=== PATIENT | female | born 1960 | race Caucasian/White ===

== ENCOUNTER 2017-09-23 06:02 | Day surgery (SDC) | payer BC, OTHER ==
[2017-09-19 14:19] VITALS: BMI 34.5
[2017-09-23] MEDS ORDERED: LIDOCAINE 1%/EPI 1:100000 (20 ML MULTI DOSE VIAL) ONE (07:24)
[2017-09-23] MEDS ORDERED: BUPIVACAINE HCL/PF 2.5 MG/ML - 30 ML VIAL IJ ONE (07:24)
[2017-09-23] MEDS ORDERED: SUCCINYLCHOLINE CHLORIDE 200 MG/10 ML VIAL ONE (07:43)
[2017-09-23] MEDS ORDERED: MIDAZOLAM HCL 2 MG/2 ML SINGLE DOSE VIAL ONE (07:43)
[2017-09-23] MEDS ORDERED: PROPOFOL 20 ML ONE (07:43)
[2017-09-23] MEDS ORDERED: ceFAZolin SODIUM 1 GM VIAL ONE (08:11)
[2017-09-23] MEDS ORDERED: DEXAMETHASONE SOD PHOSPHATE 4 MG/1 ML VIAL ONE (08:22)
[2017-09-23] MEDS ORDERED: ONDANSETRON 4 MG/2 ML VIAL ONE (08:22)
[2017-09-23] MEDS ORDERED: LABETALOL HCL 5 MG/1 ML (100MG/20 ML VIAL) ONE (09:15)
[2017-09-23] MEDS ORDERED: NITROGLYCERIN 2% OINTMENT - 1GM PACKET TD ONE (10:20)
[2017-09-23] MEDS ORDERED: ONDANSETRON 4 MG/2 ML VIAL IVPUSH PRN (11:32)
[2017-09-23] MEDS ORDERED: ACETAMINOPHEN 325 MG TABLET (FP) PO PRN (11:32)
[2017-09-23] MEDS ORDERED: oxyCODONE HCL 5 MG TABLET PO PRN ×3 (11:32→11:36)
[2017-09-23] MEDS ORDERED: ONDANSETRON 4 MG/2 ML VIAL IVPB PRN (11:36)
--- NOTE | 2017-09-23 11:40 | OP ---
Operative Note - Note: Operative Date: 09/23/17 Pre-Operative Diagnosis: deformity of bilateral breast reconstructions Operation: revision of bilateral breast reconstructions Post-Operative Diagnosis: Same as Pre-op Surgeon: Jeffrey Vazquez Anesthesia: General
[2017-09-23] MEDS ORDERED: LACTATED RINGERS SOLUTION 1,000 ML IV SCH ×2 (11:45)
[2017-09-23 12:44] VITALS: TEMP 98.4
--- NOTE | 2017-09-23 13:28 | OP ---
DATE OF OPERATION: 09/23/2017 PROCEDURE: Bilateral revision of reconstructed breasts. 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 POSTOPERATIVE DIAGNOSIS: Deformity of bilateral reconstructed breasts status post mastectomy with bilateral implant breast reconstructions. ATTENDING SURGEON: Jeffrey Vazquez MD DESCRIPTION OF PROCEDURE: The patient is seen in the holding area. All risks, benefits, and alternatives of the procedure are discussed and understood. The patient agreed to proceed. The patient is given sequential compression stockings preoperatively as well as Tereso hose. Brought into the operating room. Position is carefully checked by surgical anesthesia teams. She is prepped and draped in a standard surgical fashion. Then 2 g of Ancef is given preoperatively. A time-out is called. Patient, procedure site, sides are verified. At this point, attention is first directed toward the patient's left side where lateral dogear excision is performed. The excess skin on the lateral portion of the mastectomy flap is incised. The mastectomy flap laterally is re-elevated several cm from lateral to medial. At the medial there was a central 6 o'clock tissue defect, which is incised. The divotted off area of the tissue is excised entirely, and mastectomy skin is mobilized more medially. This medial pillar of skin is repaired to the more medial mastectomy flap with a series of buried 3-0 Monocryl suture. The excess skin and fat from the lateral pole of the mastectomy is excised. Hemostasis meticulously achieved. Copious irrigation is performed. The Isabella's layer fat equivalent is repaired with a series of interrupted buried 2-0 Vicryl suture advancing the lateral skin medially. The skin is then closed with a series of interrupted buried deep dermal 3-0 Monocryl suture followed by a running subcuticular 3-0 Monocryl suture along the horizontal length of the wound. There is a vertical component at the 6 o'clock portion not involving the nipple areola. This is closed with a series of interrupted buried deep dermal 3-0 Monocryl suture followed by a running subcuticular 3-0 Monocryl suture. Several 5-0 nylon sutures are placed to perfect the closure. Attention is then directed toward the contralateral side. On the contralateral side, a much larger lateral fullness is excised as per the patient's request. Similar technique is performed where the lateral dogear is excised first and the lateral mastectomy skin is elevated allowing excision of extra fat on the lateral tissue. The skin flap is then mobilized medially. It is tailor tacked in position. A central area of mastectomy skin at the 6 o'clock position is excised in order to accommodate the medialization of the lateral mastectomy flap. Closure is positive for in a similar way after hemostasis and meticulous irrigation. This was done with a series of interrupted Isabella's layer equivalent 2-0 Vicryl suture followed by a series of interrupted buried deep dermal 3-0 Monocryl suture followed by running subcuticular 3-0 Monocryl suture. Several 4-0 nylon sutures are placed to perfect the closure. This closure had been done over a size 10 flap J-P drain brought out through a lateral stab wound incision secured with a 2-0 silk drain suture. The patient is awoken from anesthesia having tolerated procedure well and transferred to recovery without complication. Emile [id number]
[2017-09-23] MEDS ORDERED: oxyCODONE HCL 5 MG TABLET ONE (14:02)
[2017-09-23 15:13] VITALS: BP 122/70; PULSE 72
--- NOTE | 2017-09-25 16:25 | PATH ---
Surgical Pathology Report Patient Name: RICKEY FERNANDEZ [facility]. Rec. #: [id number] /Age/Gender: 1960 (Age: 56) / F Account: [id number] [facility] Taken: 09/23/2017 Received: 09/23/2017 Reported: 09/25/2017 Physicians: Jeffrey Vazquez Specimen(s) Received A: LEFT BREAST MASTECTOMY SKIN B: RIGHT BREAST LYMPH NODE C: RIGHT BREAST MASTECTOMY SKIN Clinical History None given Final Diagnosis A. LEFT BREAST MASTECTOMY SKIN, EXCISION: SEGMENT OF SKIN AND SUBCUTANEOUS TISSUE, NO SIGNIFICANT PATHOLOGIC CHANGE. B. RIGHT BREAST LYMPH NODE, EXCISION: ADIPOSE TISSUE WITH A BENIGN CYST LINED BY FIBROUS TISSUE WITH SCANTY HISTIOCYTIC AND LYMPHOCYTIC INFILTRATE. C. RIGHT BREAST MASTECTOMY SKIN, EXCISION: SEGMENT OF SKIN AND SUBCUTANEOUS TISSUE, NO SIGNIFICANT PATHOLOGIC CHANGE. Electronically Signed Vandana Dockery M.D. Gross Description A. Received in formalin labeled "left breast mastectomy skin," is an 86 g, 18.5 x 2.5 cm pritchett, elliptical, unoriented portion of skin excised to a depth of 3.5 cm. The epidermal surface is unremarkable. Sectioning reveals unremarkable underlying soft tissue. A litigation claim representative section is submitted in one cassette. B. Received in formalin labeled "right breast lymph node," is a 0.5 x 0.4 x 0.3 cm pritchett nodular lesion with minimal attached fat. The specimen is submitted in toto in one cassette. C. Received in formalin labeled "right breast mastectomy skin," is a 156 g, 21.5 x 5.3 cm pritchett, irregular, unoriented portion of skin excised to a depth of 3.3 cm. The epidermal surface is unremarkable. Sectioning reveals unremarkable underlying soft tissue. A litigation claim representative section is submitted in one cassette. DL/09/24/2017 saudi09/24/2017
== END 2017-09-23 15:00 | disposition home or self-care (01) ==
LOC: FASU 06:02
PROVIDERS: ATTEND Plastic Surgery
PROC: 0HRV37Z Replacement of Bilateral Breast with Autologous Tissue Substitute, Percutaneous Approach (ICD-10-PCS; principal; 2017-09-23 08:34)
DX: N65.0 Deformity of reconstructed breast (principal); Z90.13 Acquired absence of bilateral breasts and nipples
CPT/HCPCS: 88307-TC; 88309-TC; 94760

== ENCOUNTER 2018-10-07 10:01 | Day surgery (SDC) | payer OTHER ==
[2018-10-01 17:29] VITALS: BMI 34.5
[2018-10-07] MEDS ORDERED: MIDAZOLAM HCL 2 MG/2 ML SINGLE DOSE VIAL ONE (10:46)
[2018-10-07] MEDS ORDERED: ONDANSETRON 4 MG/2 ML VIAL IVPUSH PRN ×2 (11:32→14:26)
[2018-10-07] MEDS ORDERED: oxyCODONE HCL 5 MG TABLET PO PRN ×3 (11:33→14:26)
[2018-10-07] MEDS ORDERED: LACTATED RINGERS SOLUTION 1,000 ML IV SCH (11:45)
[2018-10-07] MEDS ORDERED: BUPIVACAINE HCL/PF 2.5 MG/ML - 30 ML VIAL IJ ONE (11:59)
[2018-10-07] MEDS ORDERED: PROPOFOL 20 ML ONE ×2 (12:58)
[2018-10-07] MEDS ORDERED: ceFAZolin SODIUM 1 GM VIAL ONE ×2 (13:05→13:06)
[2018-10-07] MEDS ORDERED: ROCURONIUM BROMIDE 50 MG/5 ML VIAL ONE (13:05)
[2018-10-07] MEDS ORDERED: SODIUM CHLORIDE 0.9% P/F 10 ML VIAL IJ ONE (13:05)
[2018-10-07] MEDS ORDERED: GLYCOPYRROLATE 0.2 MG/1 ML VIAL ONE (13:07)
[2018-10-07] MEDS ORDERED: NEOSTIGMINE METHYLSULFATE 0.5 MG/ML - 10 ML MDV ONE (13:07)
[2018-10-07] MEDS ORDERED: BUPIVACAINE HCL/PF 0.25% (2.5MG/ML) 10 ML VIAL IJ ONE ×2 (14:08)
[2018-10-07] MEDS ORDERED: DEXAMETHASONE SOD PHOSPHATE 4 MG/1 ML VIAL ONE (14:27)
[2018-10-07] MEDS ORDERED: ONDANSETRON 4 MG/2 ML VIAL ONE (14:27)
[2018-10-07] MEDS ORDERED: SODIUM CHLORIDE 1,000 ML IV SCH (14:30)
--- NOTE | 2018-10-07 14:33 | OP ---
Operative Note - Note: Operative Date: 10/07/18 Pre-Operative Diagnosis: Epigastric Pain. GE Reflix Disease. Vomiting. Mechanical complication of implantable device secondary to Gastric Band Operation: Removal of Gastric Band plus subcutaneous port device. Laparoscopic lysis of adhesions. Excision of fibrous capsule around stomach. Diagnostic Laparoscopy Findings: Gastric Band with fibrous capsule surrounding it and on stomach wall and both areas lysed RUQ adhesions lysed with blunt and sharp dissection Post-Operative Diagnosis: Same as Pre-op (Abdominal Adhesions; Fibrous capsule around stomach) Surgeon: Collins Mckenzie Geneticist: Kiel Jimenez Anesthesia: General Specimens Removed: Gastric Band plus sub-Q port Estimated Blood Loss (mls): 30 Operative Report Dictated: Yes
[2018-10-07] MEDS ORDERED: FAMOTIDINE 20 MG/50 ML IVPB 20 MG/50 ML MG IVPB ONE (14:43)
[2018-10-07] MEDS ORDERED: FAMOTIDINE 20 MG PREMIXED IVPB IVPB ONE (14:45)
[2018-10-07 15:15] LABS: HEMATOCRIT 43.1 % (32.4-45.2); HEMOGLOBIN 14.5 GM/dl (10.7-15.3); MCH 31.4 pg (25.7-33.7); MCHC 33.7 g/dl (32.0-36.0); MEAN CELL VOLUME 93.1 fl (80-96); MEAN PLT VOLUME 9.8 fl (7.5-11.1); PLATELET COUNT 279 K/MM3 (134-434); RBC 4.63 M/mm3 (3.60-5.2); WHITE BLOOD COUNT 9.1 K/mm3 (4.0-10.8)
[2018-10-07 15:19] LABS: CALCIUM 8.6 mg/dl (8.5-10); CREATININE 0.8 mg/dl (0.55-1.3)
--- NOTE | 2018-10-07 15:39 | SURG ---
Surgery Range Manager Note Range Manager: Kiel Jimenez PA-C Date of Service: 10/07/18 Diagnosis: Epigastric Pain. GE Reflix Disease. Vomiting. Mechanical complication of implantable device secondary to Gastric Band Procedure: Removal of Gastric Band plus subcutaneous port device. Laparoscopic lysis of adhesions. Excision of fibrous capsule around stomach. Diagnostic Laparoscopy I was present for the entirety of the operative procedure. For further detail, please refer to operative report. Visit type - Case Type Case Type: Scheduled - Emergency Emergency Visit: No - New patient This patient is new to me today: Yes Date on this admission: 10/07/18 - Critical Care Critical Care patient: No
[2018-10-07 16:04] VITALS: TEMP 97.7
[2018-10-07 16:47] VITALS: BP 143/81; PULSE 63
[2018-10-07] MEDS ORDERED: FAMOTIDINE 20 MG/50 ML IVPB 20 MG/50 ML MG IVPB SCH (22:00)
--- NOTE | 2018-10-08 07:17 | OP ---
DATE OF OPERATION: 10/07/2018 PREOPERATIVE DIAGNOSIS: 1. Epigastric abdominal pain. 2. Gastroesophageal reflux disease. 3. Vomiting. 4. Mechanical complication of implantable device secondary to gastric band. POSTOPERATIVE DIAGNOSIS: 1. Epigastric abdominal pain. 2. Gastroesophageal reflux disease. 3. Vomiting. 4. Mechanical complication of implantable device secondary to gastric band. 5. Abdominal adhesions. 6. Fibrous capsule around the stomach. PROCEDURE PERFORMED: 1. Removal of gastric band plus subcutaneous port component. 2. Laparoscopic lysis of adhesions. 3. Excision of fibrous capsule around the stomach. 4. Diagnostic laparoscopy. OPERATING SURGEON: Collins Mckenzie MD ELECTRICIAN MAINTENANCE: Kiel Jimenez PA-C ESTIMATED BLOOD LOSS: 30 mL. ANESTHESIA: General. OPERATIVE PROCEDURE: The patient was brought into the operating room, placed on the OR table in the supine position. All precautions were taken initially including padding for the back and the feet, and Venodyne boots were placed on both lower extremities. At that point, the abdomen was prepped and draped in the usual manner. A Veress needle was placed in the left upper quadrant, and a pneumoperitoneum was established. A No. 5 bladeless trocar was then placed in the left upper quadrant under direct vision with the laparoscopic camera. Once the abdomen was safely entered, a No. 5 bladeless trocar was then placed below the left costal margin more laterally. There were adhesions in the area of the right upper quadrant from the patients previous surgery. These adhesions prevented placement of the No. 15 trocar in the right upper quadrant. Therefore, using the two No. 5 trocars on the left, one in the working port and one with the camera, laparoscopically the adhesions were lysed with a combination of blunt dissection with laparoscopic instrument and also with scissors and electrocautery. Once there was clearing in the right upper quadrant, a No. 15 bladeless trocar was placed in the right upper quadrant and a No. 5 bladeless trocar was placed more laterally in the right upper quadrant. A Mode liver retractor was then placed in the epigastrium to retract left lobe of the liver. The patient was then placed in 20-degree reverse Trendelenburg position by anesthesia. Tubing to the band was noted going to the band around the stomach which was covered by a fibrous capsule. As the business services assistant surgeon retracted the band tubing towards the patients left side, the operating surgeon with the electrocautery dissected the fibrous capsule off the band on the lesser curvature side. This continued until the entire band on the lesser curvature was free of fibrous capsule and clearly visible. At this juncture, the operating surgeon pulled the patients band and tubing towards the patients right side, and the business services assistant surgeon retracted the stomach inferiorly. Once again, cautery was used to dissect the fibrous capsule off the band on the greater curve, and this continued completely around the last of the greater curve until the entire band was in full view. The band was then cut at the tubing takeoff to the subcutaneous port, and the band was then opened and pulled from around the stomach and sent off the field as specimen to Pathology. Attention was now directed to the fibrous capsule around the stomach. As the business services assistant and operating surgeon lifted the fibrous capsule off, the operating surgeon placed laparoscopic scissors under it and gently opened up the fibrous capsule from inferior to superior. Once this was opened, the stomach wall was exposed, and no signs of any injury were noted. The fibrous capsule was slightly peeled back. As a precaution, anesthesia inserted air into the oral gastric tube, which filled the stomach with air, but no signs of any air leaks were noted as the saline was placed over the area and no bubbles were seen. At this juncture, under direct vision, all trocars were removed, and pneumoperitoneum was released. The No. 15 right upper quadrant port site was now extended laterally with a scalpel and dissecting with continuous electrocautery to the port under right anterior rectus muscle fascia. The fibrous capsule around the port was dissected off the port, and the port and remaining tubing were sent off the field as specimen to Pathology. All trocar sites now received 0.25% Marcaine. The No. 15 trocar site where the port was was first closed with 3-0 Vicryl in the subcutaneous tissue, and all trocar sites were closed with 4-0 Biosyn in a subcuticular fashion. Dressings were applied. The patient was then awoken from anesthesia and transferred out of the operating room to the recovery room in stable condition. Emile [id number]
--- NOTE | 2018-10-10 16:30 | PATH ---
Surgical Pathology Report Patient Name: RICKEY FERNANDEZ [facility]. Rec. #: [id number] /Age/Gender: 1960 (Age: 57) / F Account: [id number] Location: [facility] Taken: 10/07/2018 Received: 10/07/2018 Reported: 10/10/2018 Physicians: Collins Mckenzie M.D. Specimen(s) Received GASTRIC BAND AND PORT Clinical History Epigastric pain Final Diagnosis GASTRIC BAND AND PORT, REMOVAL: GASTRIC BAND AND PORT. MACROSCOPIC DIAGNOSIS. Electronically Signed Alissa Moore M.D. Gross Description Received fresh labeled "gastric band and port," is a 6.5 cm in diameter gastric band with an attached 28 cm in length portion of white tubing extending from one aspect. Also received within the same container is a 3 cm in diameter x 1.5 cm in depth a white, circular device, consistent with a Port-A-Cath. The Port-A-Cath displays a 19 cm in length portion of white tubing extending from one aspect. No soft tissue is present. No sections are submitted, gross only. /10/09/2018 saudi/10/09/2018
== END 2018-10-07 16:25 | disposition home or self-care (01) ==
LOC: FASU 10:01
PROVIDERS: ATTEND Surgery
PROC: 0DN64ZZ Release Stomach, Percutaneous Endoscopic Approach (ICD-10-PCS; 2018-10-07)
PROC: 0DP64CZ Removal of Extraluminal Device from Stomach, Percutaneous Endoscopic Approach (ICD-10-PCS; principal; 2018-10-07 13:19)
DX: T85.518A Breakdown (mechanical) of other gastrointestinal prosthetic devices, implants and grafts, initial encounter (principal); Y93.89 Activity, other specified; Y92.89 Other specified places as the place of occurrence of the external cause; K95.09 Other complications of gastric band procedure; R10.13 Epigastric pain; K21.9 Gastro-esophageal reflux disease without esophagitis; R11.10 Vomiting, unspecified; K31.89 Other diseases of stomach and duodenum; K66.0 Peritoneal adhesions (postprocedural) (postinfection)
CPT/HCPCS: 36415; 80048; 85027; 88300-TC; 94760